=== PATIENT | female | born 1995 | race African-American/Black ===

== ENCOUNTER 2022-06-22 11:07 | Emergency (ER) | payer OTHER, SELFPAY ==
[2022-06-22 11:10] VITALS: BP 135/101; PULSE 79; RESP 22; TEMP 36.1; O2SAT 99; BMI 27.1
--- NOTE | 2022-06-22 11:38 | VDUE_ITS ---
Reason For Study: Pain Left Proximal Left jugular vein is spontaneous, widely patent, phasic, with no intraluminal echogenicity noted. Left subclavian vein is spontaneous, widely patent, phasic, with no intraluminal echogenicity noted. Left Arm Left axillary vein is spontaneous, patent, phasic, competent, compressible and demonstrates augmentation. Left brachial vein is compressible. Left cephalic vein is compressible. Left basilic vein is compressible. Left Lower Arm Left radial vein is compressible. Left ulnar vein is compressible. VL/Venous Duplex US, Unilateral Interpretation Summary No evidence for acute deep venous thrombosis[left] upper extremity with patent and compressible cephalic and basilic veins. Ordering Physician: Jimbo Salgado Referring Physician: N/A Performed By: Denny Melgar RVT ???
--- NOTE | 2022-06-22 13:21 | EX.ED.GENINJ ---
HPI <FILI Le - Last Filed: 06/22/22 13:34> History of Present Illness Chief Complaint: Other, Pain/Inj Narrative Narrative: Patient is a 26-year-old female with no significant medical history. Patient was into the emergency department with left arm pain has been ongoing for the last week. Patient states in early May 2022 she received a implant in her left upper arm for control. Patient states that for the last week, she has had pain from her shoulder down to her fingers. Patient states that hurts with movement,, slight palpation. Patient denies any chest pain, patient denies any shortness of breath. PFSH <FILI Le - Last Filed: 06/22/22 13:34> [facility] Medical History no medical history Home Medications gabapentin 300 mg capsule 300 mg PO TID #89 caps 06/22/22 [Rx Last Taken Unknown] hydrocodone-acetaminophen 5-325mg 5mg-325mg 1 tab PO Q4H PRN PRN Pain 3 days #8 TABLETS 06/22/22 [Rx Last Taken Unknown] oxycodone-acetaminophen 5 mg-325 mg tablet (Percocet) 1 tab PO Q8H PRN pain 3 days #8 tabs 06/22/22 [Rx Last Taken Unknown] Allergy/AdvReac Type Severity Reaction Status Date / Time No Known Allergies Allergy Verified 06/22/22 11:14 Social History Smoking Status: Never smoker ROS <FILI Le - Last Filed: 06/22/22 13:34> ROS ED ROS Narrative Constitutional: Negative for fever, chills, weight loss, weakness Eyes: Negative for vision loss, vision change, double vision ENT: Negative for any sore throat, ear pain, congestion Cardiovascular: Negative for any chest pain, tightness, palpitations Respiratory: Negative for any cough, sputum production, hemoptysis, dyspnea, dyspnea on exertion, orthopnea Gastrointestinal: Negative for any abdominal pain, nausea, vomiting, diarrhea, constipation, blood in stool, blood in vomit : Negative for any urinary frequency, dysuria, retention, blood in urine Muscle skeletal: Negative for any muscle joint pain, stiffness, myalgias, arthralgias, neck pain, back pain. Positive to the left arm pain Neurological: Negative for any headache, syncope, numbness or tingling, dizziness Skin: Negative for any rashes, lumps, itching, abrasions, lacerations Psychiatric: Negative for any depression, anxiety, stress, suicidal ideation, homicidal ideation Hematologic: Negative for any easy bruising, excessive bruising, easy bleeding Allergies: Negative for any eczema, hives, rash EXAM <FILI Le - Last Filed: 06/22/22 13:34> Physical Exam Narrative Exam Narrative: Extremities: No peripheral edema, no signs of gross trauma or deformity. Active full range of motion of all extremities. +2 radial pulse. Compartments are soft. There is no signs of redness, cellulitis. There is no signs of trauma. No neurological focal deficit. Neuro: Cranial nerves II through XII intact, no focal neurological deficits. Skin: Clean dry and intact with no rash, purpura, petechiae, vesicles or pustules. Backs/flank: No CVA tenderness, no midline spinal tenderness, no deformity. Psych: Normal mood and affect. No SI, HI or acute psychosis. Const Vital Signs: 06/22/22 11:10 Temperature 96.9 F L Temperature Source Temporal Pulse Rate 79 Respiratory Rate 22 H Blood Pressure 135/101 H Blood Pressure Mean 112 Pulse Ox 99 Oxygen Delivery Method Room Air Positive well nourished and well developed General Appearance ED: well developed <Dr. Gordon Mahmood MD - Last Filed: 06/22/22 16:18> Physical Exam Const Vital Signs: 06/22/22 11:10 Temperature 96.9 F L Temperature Source Temporal Pulse Rate 79 Respiratory Rate 22 H Blood Pressure 135/101 H Blood Pressure Mean 112 Pulse Ox 99 Oxygen Delivery Method Room Air MDM <FILI Le - Last Filed: 06/22/22 13:34> MDM Radiography Diagnostic Testing: Clinical Impression(s) from Imaging Studies Venous Doppler Study 06/22/22 11:38 Interpretation Summary No evidence for acute deep venous thrombosis[left] upper extremity with patent and compressible cephalic and basilic veins. Ordering Physician: Jimbo Salgado Referring Physician: N/A Performed By: Denny Melgar RVT ??? Treatment and Re-Evaluation Narrative: All radiologic examinations were read, reviewed by the emergency department attending. From these reads, a plan of care will be put in place. Patient appears to be in mild discomfort secondary to left arm pain. Patient's physical examination was grossly unremarkable. Physical examination yielded no red flag signs. Differential diagnosis included cellulitis, muscle strain, compartment syndrome. Patient had soft compartments, patient has no neurological focal deficit. There is no color change. Is no edema. 4 patient concern, a ultrasound of the left upper arm was completed. This showed no deep vein thrombosis. This could be nerve pain. Patient will follow-up with her PCP. Patient be placed on gabapentin as well as Mccarr. She will work her self up to 300 mg of gabapentin 3 times a day. She will follow-up outpatient. She was given strict return precautions to return for any worsening redness, fever chills nausea vomiting. <Dr. Gordon Mahmood MD - Last Filed: 06/22/22 16:18> [facility] MDM Narrative Medical decision making narrative: Seen and evaluated independently and in conjunction with nurse practitioner. Agree with notes above unless documented otherwise. Patient with nontraumatic pain throughout her left lower extremity, hurts more to move it but not her head or neck. No pain in her neck. Some pins and needle sensations. Pain it is stocking glove in distribution, from her shoulder down to her fingers. Normal inspection, neurovascular intact distally with a normal pulse, full range of motion of all joints but with pain doing so, but the pain is not just located to the joint it is everywhere when she does this. All compartments are soft there is no evidence of compartment syndrome clinically. Plan is to perform a venous duplex ultrasound to rule out clot, and if this is negative we will treat her pain accordingly and she can follow-up as an outpatient. Radiography Diagnostic Testing: Clinical Impression(s) from Imaging Studies Venous Doppler Study 06/22/22 11:38 Interpretation Summary No evidence for acute deep venous thrombosis[left] upper extremity with patent and compressible cephalic and basilic veins. Ordering Physician: Jimbo Salgado Referring Physician: N/A Performed By: Denny Melgar RVT ??? Discharge Plan Triage Chief Complaint: Other, Pain/Inj ED Midlevel Provider: Jimbo Salgado ED Provider: Gordon Mahmood Dx/Rx/DC Orders Clinical Impression: Arm pain Instructions: ED Myalgias, ED Pain, Acute, Uncertain Cause Prescriptions: New gabapentin 300 mg capsule 300 mg PO TID Qty: 89 0RF Rx Instructions: take two 300 mg gabapentin tomorrow. After tomorrow you will take 300 mg gabapentin 3 times per day. hydrocodone-acetaminophen 5-325 mg tablet 1 tab PO Q4H PRN PRN (Reason: Pain) 3 Days Qty: 8 0RF oxycodone-acetaminophen [Percocet] 5-325 mg tablet 1 tab PO Q8H PRN (Reason: pain) 3 Days Qty: 8 0RF Primary Care Provider: Care Physician,No Primary Referrals: Biju Busby MD [Med Staff - Risk Adjustment Specialist] - Care Physician,No Primary [Primary Care Provider] - Activity Restrictions/Additional Instructions: You got your first dose of gabapentin today. Tomorrow take it twice a day. From thereon out to get 3 times a day. Use Mccarr as needed. Disposition Disposition: Home, Self Care Discharge Date/Time: 06/22/22 13:54
[2022-06-22] MEDS: Gabapentin 300 MG Capsule PO (13:31)
== END 2022-06-22 13:54 | disposition home or self-care (01) ==
PROVIDERS: Emergency Provider Emergency Medicine; Visit Provider Emergency Medicine
DX: M79.602 Pain in left arm (principal); Z30.49 Encounter for surveillance of other contraceptives
CPT/HCPCS: 93971; 99283

== ENCOUNTER 2022-06-23 07:50 | Emergency (ER) | payer OTHER, SELFPAY ==
[2022-06-23 07:51] VITALS: BP 138/88; PULSE 110; RESP 18; TEMP 36.6; O2SAT 98; BMI 26.9
--- NOTE | 2022-06-23 08:23 | CT_ITS ---
STUDY: CTA LEFT UPPER EXTREMITIES REASON FOR EXAM: Female, 26 years old. Left arm pain, no injury RADIATION DOSAGE (If Supplied By Facility): CTDIvol = ( 17.66 ) mGy, DLP = ( 1311.74 ) mGycm TECHNIQUE: Axial CT angiography, multi-detector data acquisition was obtained from the neck base through the hands following intravenous administration of IV 100mL Isovue-370. 2.5 mm axial images and MIP images were reconstructed from the axial data set. Post-processing of the angiographic images was performed, with multiplanar reformation and 3D reconstruction. Individualized dose optimization techniques were used for this CT. COMPARISON: None. FINDINGS: LEFT UPPER EXTREMITY: Normal subclavian artery, without soft or calcific atherosclerotic plaque formation, luminal stenosis or aneurysm. Normal visualized left vertebral artery arising from the left subclavian artery. Normal axillary artery, without soft or calcific atherosclerotic plaque formation, luminal stenosis or aneurysm. Normal brachial artery, without soft or calcific atherosclerotic plaque formation, luminal stenosis or aneurysm. Normal brachial trifurcation. Normal radial artery, continuous with the palmar arch, without atherosclerotic plaque formation, luminal stenosis or aneurysm. Normal ulnar artery, continuous with the palmar arch, without atherosclerotic plaque formation, luminal stenosis or aneurysm. Normal interosseous artery, continuous to the wrist, without atherosclerotic plaque formation, luminal stenosis or aneurysm. Normal visualized deep and superficial palmar arches and digital arteries. Normal osseous, muscular and subcutaneous structures in the left upper extremity. CT/CTA Upper Ext W/WO Contrast IMPRESSION: Unremarkable examination. Electronically Signed: Christopher King MD at 9:23 EST ,
--- NOTE | 2022-06-23 08:25 | EX.ED.UPPERE ---
HPI History of Present Illness Chief Complaint: Upper Extremity Injury Narrative Narrative: 26-year-old female presenting with nontraumatic left arm pain. She states it starts in her shoulders and radiates all the way down to her left hand. She has trouble describing the sensation but states it feels like it is burning sometimes and throbbing. She states it feels like as if her bones are rotting. It feels like her arm is going to fall off. Patient seen earlier this week for similar symptoms and had DVT study performed which was negative. She was put on gabapentin 300 mg p.o. 3 times daily and oxycodone. She states that it is not helping the pain. She denies any new trauma. She is able to move her left upper extremity. She has no rashes on the upper extremity. She has not followed up with her PCP because she has not been able to get into the office. PFSH PFS Medical History no medical history Home Medications gabapentin 300 mg capsule 300 mg PO TID #89 caps 06/22/22 [Rx Last Taken Unknown] hydrocodone-acetaminophen 5-325mg 5mg-325mg 1 tab PO Q4H PRN PRN Pain 3 days #8 TABLETS 06/22/22 [Rx Last Taken Unknown] oxycodone-acetaminophen 5 mg-325 mg tablet (Percocet) 1 tab PO Q8H PRN pain 3 days #8 tabs 06/22/22 [Rx Last Taken Unknown] Allergy/AdvReac Type Severity Reaction Status Date / Time No Known Allergies Allergy Verified 06/22/22 11:14 Social History Smoking Status: Never smoker [facility] ED Constitutional Constitutional ED: Denies chills, fever(s) or sweats Eyes Eyes: Denies blurry vision or change in vision ENT ENT ED: Denies ear pain or sore throat Cardiovascular Cardiovascular: Denies chest pain, palpitations or racing heartbeat Respiratory/Chest Respiratory/Chest: Denies cough, dyspnea or sputum Gastrointestinal Gastrointestinal: Denies abdominal pain, constipation, diarrhea, nausea or vomiting Genitourinary Genitourinary ED: Denies dysuria, hematuria or urinary frequency Musculoskeletal Musculoskeletal: Reports other Details: Left arm pain Integumentary Denies abscess, Abrasions or rash Neurologic Neurologic: Denies headache(s), paresthesias or weakness Psychiatric Psychiatric: Denies anxiety, depression, suicidal ideation or suicidal thoughts Endocrine Endocrinology: Denies polydipsia or polyuria EXAM Physical Exam Const Vital Signs: 06/23/22 07:51 Temperature 97.8 F Temperature Source Temporal Pulse Rate 110 H Respiratory Rate 18 Blood Pressure 138/88 H Blood Pressure Mean 104 Pulse Ox 98 Oxygen Delivery Method Room Air Positive well nourished Constitutional Narrative: Tearful HEENT normocephalic and atraumatic Eyes PERRL and EOMs intact bilaterally Chest Wall inspection of chest normal and palpation of chest normal Resp normal respiratory effort and clear to auscultation bilaterally Cardio regular rate Rate: tachycardic GI non-tender Extremity Extremity Narrative: Left arm: Palpation from the left shoulder, humerus, elbow, forearm, hand does not elicit any significant tenderness. Sensation is intact. Patient able to flex, extend, rotate the shoulder. She is able to flex, extend the left elbow. She is able to pronate and supinate the left forearm. She is able to flex and extend the left wrist without difficulty. Left arm is not cold to the touch. Jc's test normal. Left hand neurovascular intact with brisk cap refill to all 5 fingers. All compartments of the left arm are soft. Neuro oriented x3, CN's II-XII intact bilaterally, moves all extremities, no focal motor deficits and no sensory deficits noted Sensorium / Orientation: alert Psych mental status grossly normal MDM MDM MDM Narrative Medical decision making narrative: Patient presenting with left arm pain of unclear etiology. I am unable to elicit pain by palpation. The compartments are soft throughout. No bony deformities. She is able to move the arm without difficulty. She appears to be neurovascular intact with a brisk cap refill to all 5 fingers on the left hand. Jc's test normal on the left. She is crying and tearful of the pain. Review of the medical record shows that he did have a DVT study performed and this was negative. Unclear what the etiology of the pain is but is definitely out of proportion to my exam. Differential diagnosis abscess, cellulitis, compartment syndrome, muscle tear. CBC obtained to assess white blood cell count, hemoglobin, differential. BMP to assess renal function electrolytes. Troponin was added to make sure this is not an atypical cardiac presentation. EKG was also added for this reason. We will obtain CBC and BMP unremarkable. High sensitive troponin was 4. EKG on my interpretation shows a sinus rhythm with a ventricular rate of 93 bpm without sign of ischemic change or dysrhythmia. CTA of the upper extremity was obtained due to the pain out of proportion and there is nothing acute found on this. She was medicated with Dilaudid and Zofran and on reevaluation she is sleeping comfortably. I did psychosocial rehabilitation counselor the patient that she might be having some pain from this recent Nexplanon implant which she tells me she had an planted. I recommend that she see the provider who put it in to have it taken out. Patient has pain medications and previous follow-up with Dr. Biju Busby. Impression: 1. Left arm pain Lab Data Attestation: I reviewed the patient's lab results. Discharge Plan Triage Chief Complaint: Upper Extremity Injury ED Provider: Marbin Elizabeth Dx/Rx/DC Orders Prescriptions: No Action gabapentin 300 mg capsule 300 mg PO TID Qty: 89 0RF Rx Instructions: take two 300 mg gabapentin tomorrow. After tomorrow you will take 300 mg gabapentin 3 times per day. hydrocodone-acetaminophen 5-325 mg tablet 1 tab PO Q4H PRN PRN (Reason: Pain) 3 Days Qty: 8 0RF oxycodone-acetaminophen [Percocet] 5-325 mg tablet 1 tab PO Q8H PRN (Reason: pain) 3 Days Qty: 8 0RF Primary Care Provider: Care Physician,No Primary Referrals: Care Physician,No Primary [Primary Care Provider] - Disposition Disposition: Home, Self Care
--- NOTE | 2022-06-23 08:29 | EKG12_ITS ---
Test Reason : Blood Pressure : / mmHG Vent. Rate : 093 BPM Atrial Rate : 093 BPM P-R Int : 138 ms QRS Dur : 082 ms QT Int : 354 ms P-R-T Axes : 067 031 010 degrees QTc Int : 440 ms Normal sinus rhythm Normal ECG Confirmed by ARTURO HARRIS, ALISON ([id number]), deputy editor in chief FIDELINA HATFIELD ([id number]) on 06/24/2022 9:23:38 AM Referred By: HAYDEN Confirmed By:ALISON MORRIS MD
[2022-06-23 08:40] LABS: Absolute Lymphocyte Count 2.29 X10^3/uL (0.83-4.51); Absolute Neutrophil Count 1.9 X10^3/uL (2.0-7.7); Basophil# 0.04 X10^3/uL; Basophil% 0.9 % (0-1); Eosinophil# 0.08 X10^3/uL; Eosinophils% 1.8 % (0-5); Hematocrit 44.2 % (37-47); Hemoglobin 14.6 g/dL (12.0-15.0); Lymphocyte # 2.29 X10^3/ul (0.83-4.51); Lymphocyte % 50.2 % (19-41); Mean Corpuscular Hgb 28.4 pg (27.0-32.0); Mean Platelet Vol. 11.9 fl (6.2-12.0); Monocyte# 0.29 X10^3/uL; Monocyte% 6.4 % (0-10); NRBC Flagged by Analyzer 0 % (0-5); Neutrophil # 1.85 X10^3/uL (2.7-7.7); Neutrophil % 40.5 % (47-70); Platelet Count 218 K/mm3 (150-450); RBC Distribution Width CV 11.6 % (11.6-14.6); RBC Distribution Width SD 36.2 fl (35.1-43.9); Red Blood Count 5.14 M/mm3 (4.2-5.4); White Blood Count 4.6 K/mm3 (4.4-11.0)
[2022-06-23] MEDS: HYDROmorphone 0.5 MG/0.5 ML SYRINGE IV (08:41)
[2022-06-23] MEDS: Ondansetron 4 MG/2 ML Vial IV (08:41)
--- NOTE | 2022-06-23 08:55 | RAD_ITS ---
STUDY: X-RAY CHEST REASON FOR EXAM: Female, 26 years old. Chest pain TECHNIQUE: Single AP portable view of the chest. COMPARISON: None. FINDINGS: The lungs are clear and expanded. There is no demonstrated pleural abnormality. Normal size heart. Normal mediastinum and aaron. Normal visualized pulmonary arteries. Normal visualized aortic arch and descending thoracic aorta. Normal visualized thoracic spine. Normal visualized ribs, clavicles, and shoulders. There is no demonstrated abnormality of the visualized soft tissue structures of the upper abdomen. RAD/Chest 1 View (Portable) IMPRESSION: Normal x-ray examination of the chest. Electronically Signed: Christopher King MD at 9:09 EST ,
[2022-06-23 08:59] LABS: Anion Gap 7 (5-15); BUN 12 mg/dL (7-18); BUN/Creat Ratio 13.9 RATIO (10-20); Calcium,Total 9.2 mg/dL (8.5-10.1); Chloride 108 mmol/L (98-107); Creatinine, Serum 0.86 mg/dL (0.55-1.02); EST Glomerular Filtration Rate 83 mL/min (>60); Est Glom Filt Rate - Afr Amer 100 mL/min (>60); Estimated Creatinine Clearance 94.71 ml/min; Glucose 104 mg/dL (74-106); Potassium 4.1 mmol/L (3.5-5.1); Sodium Level 141 mmol/L (136-145); Troponin-I HS 4 pg/mL (3.0-54.0)
[2022-06-23 10:57] VITALS: BP 127/87; PULSE 84; RESP 18; O2SAT 97
== END 2022-06-23 10:59 | disposition home or self-care (01) ==
PROVIDERS: Emergency Provider Student in an Organized Health Care Education/Training Program; Visit Provider Student in an Organized Health Care Education/Training Program
DX: M79.602 Pain in left arm (principal); Z79.899 Other long term (current) drug therapy
CPT/HCPCS: 71045; 73206; 80048; 84484; 85025; 93005; 96374; 96375; 99283; Q9967; A4216; J2405

== ENCOUNTER → 2022-07-05 | Outpatient (CLI) | payer OTHER, SELFPAY ==
[2022-07-07 09:06] LABS: Syphilis Antibodies Non-reactive
[2022-07-08 18:07] LABS: QNTFERON TB Mitogen Value > 10.00 IU/mL (.); QNTFERON TB Nil Value 0.26 IU/mL (.); QNTFERON TB1+ Ag Value 0.28 IU/mL (.); QNTFERON TB2+ Ag Value 0.26 IU/mL (.)
[2022-07-09 08:14] LABS: QNTIFERON TB Positive Criteria Negative (Negative)
== END | disposition home or self-care (01) ==
DX: Z70.8 Other sex counseling (principal); Z11.3 Encounter for screening for infections with a predominantly sexual mode of transmission
CPT/HCPCS: 36415; 86480; 86780